=== PATIENT | female | born 1980 | race Caucasian/White ===

== ENCOUNTER 2019-01-08 19:39 | Inpatient (IN) | payer MEDICAID ==
[~2019-01-08] VITALS: Ht 162.6 cm; Wt 78.0 kg
--- NOTE | 2019-01-08 19:42 | NUR ---
EKG IN PROGRESS
[2019-01-08 19:44] VITALS: Ht 162.6 cm; Wt 78.0 kg
[2019-01-08 20:16] LABS: BASOPHIL % 0.3 % (0-2); PLATELET COUNT 250 x10^3mcL (130-400); RED CELL DISTRIBUTION WIDTH 13.1 % (11.5-14.5)
[2019-01-08 20:32] LABS: ALBUMIN 3.5 g/dL (3.4-5.0); BILIRUBIN TOTAL 0.9 mg/dL (0.20-1.00); CALCIUM 9.1 mg/dL (8.5-10.1); CARBON DIOXIDE 16.3 mmol/L (21-32); CREATININE SERUM 1.1 mg/dL (0.6-1.0); TOTAL PROTEIN, SERUM 7.3 g/dL (6.4-8.2)
[2019-01-08 20:33] LABS: POTASSIUM SERUM 2.5 mmol/L (3.5-5.1)
--- NOTE | 2019-01-08 20:56 | NUR ---
X-RAY BEIN DONE AT BEDSIDE.
[2019-01-08] MEDS ORDERED: ASPIR 8181 MG PO (21:24)
--- NOTE | 2019-01-08 21:24 | NUR ---
PT AAOX4, VSS, SPEAKS IN FULL CLEAR SENTENCES, BREATHING EASY AND UNLABORED. RESTING COMFORTABLY IN BED TALKING ON PHONE. NO OBVIOUS SIGNS OF DISTRESS AT THIS TIME. PT BEING ADMITTED. WILL CONTINUE TO MONITOR.
--- NOTE | 2019-01-08 21:53 | NUR ---
NO CHANGE IN STATUS AT THIS TIME. PT TOLERATING POTASSIUM CHLORIDE IV WELL. DENIES FURTHER NEEDS AT THIS TIME. WILL CONTINUE TO MONITOR.
--- NOTE | 2019-01-08 22:12 | NUR ---
CALLED TO PT BEDSIDE BY MEDICAL STUDENT, PT WAS COMPLAINING OF SEVERE ARM PAIN WITH IV INFUSION OF POTASSIUM. NOTICED PT NS WAS NOT INFUSING AND EVEN THOUGH LINE WAS WIDE OPEN. STOPPED POTASSIUM INFUSION AND FLUSHED IV WITH NS BOLUS AND PLACED NS ON IV PUMP TO INFUSE AT 120ML/HOUR ALONG WITH POTASSIUM PIGGYBACKED TO NS. PT STATES TO NO LONGER HAVING PAIN TO ARM, BUT FEELING NAUSEA. WILL NOTIFY MD AND PRIMARY RN OF PT CONDITION.
--- NOTE | 2019-01-08 22:34 | NUR ---
report called to Ferdinand PADILLA. pt admitted (tele, room# 237B). pt being transported to floor by VALERIE.
--- NOTE | 2019-01-08 22:43 | NUR ---
RECEIVED FROM ED,PUT IN ROOM 237 B AND MADE COMFORTABLE,JUANY WILL ADMIT PATIENT,THANKS.
[2019-01-08 22:59] LABS: MAGNESIUM 1.7 mg/dL (1.8-2.4); PHOSPHOROUS 2.9 mg/dL (2.5-4.9)
[2019-01-08 23:05] LABS: CHOLESTEROL/HDL RATIO 5.4
[2019-01-08 23:07] LABS: T3 TOTAL 1.11 ng/mL
[2019-01-08 23:09] LABS: FREE T4 1.54 ng/dL (0.76-1.46); FREE THYROXINE INDEX 4.3 ug/dL (1.4-4.5); T4(THYROXINE) 13.3 ug/dL (4.7-13.3)
[2019-01-08 23:11] VITALS: BP 124/82
--- NOTE | 2019-01-08 23:21 | NUR ---
RECEIVED PT FROM ER, PT ADMIT FOR SVT, HYPOKALEMIA, METABOLIC, PT IS A/O X4, VERBAL RESPONSIVE, LUNG SOUND CLEAR BILATERAL, NO COUGH, NO SOB, PT IS ON TELE 13, NSR, C/O CHEST PAIN PRESSURE, HR AT 90S AT THIS MOMENT. BOWEL SOUND PRESENT ALL 4 QUADRANTS, NO DISTENTION, NO TENDER. PEDAL PULSE PRESENT BOTH FEET, NO EDEMA, IV AT LEFT AC, NO LEAKING, NO INFILTRATION. ALL ADLS ASSIST ALL NEED MET, CALL LIGHT IN REACH, WILL CONTINUE TO MONITOR.
--- NOTE | 2019-01-09 00:49 | NUR ---
PATIENT MAGNESIUM RIDER INITIATED.IV SITE GOOD. AT BEDSIDE FOR TONIGHT,SUPPORTIVE OF CARE.CALL LIGHT IN REACH.
--- NOTE | 2019-01-09 02:08 | NUR ---
DR NICOLE CALLED AND MADE AWARE THAT [facility]SA STARTING DATE NEED TO BE CHANGED.
--- NOTE | 2019-01-09 03:18 | NUR ---
CHECKED AT INTERVALS FOR NEED AND SAFETY.NEEDED UA,REMINDED TO SAVE.WILL SEND TO LAB.
[2019-01-09 05:19] VITALS: BP 124/81
--- NOTE | 2019-01-09 05:37 | NUR ---
I AND O MEASURED AND RECORDED.SLEPT WELL DURING THE NOC.HEPLOCK INTACT.TELE 3 SR.NO CHEST PAIN.WILL ENDORSE TO NEXT SHIFT.
[2019-01-09 06:14] LABS: microscopic required? YES; urine erythrocyte TRACE (NEGATIVE)
[2019-01-09 06:22] LABS: AMPHETAMINE QUAL UR NONE DETECTED (See below)
[2019-01-09 06:40] LABS: CALCIUM 8.4 mg/dL (8.5-10.1); CARBON DIOXIDE 21.7 mmol/L (21-32); CHLORIDE SERUM 107 mmol/L (98-107); CREATININE SERUM 0.7 mg/dL (0.6-1.0); GFR1 > 60 mL/min; GLUCOSE SERUM 99 mg/dL (74-106); MAGNESIUM 2.2 mg/dL (1.8-2.4); POTASSIUM SERUM 3.9 mmol/L (3.5-5.1); SODIUM SERUM 140 mmol/L (136-145)
[2019-01-09 06:48] LABS: BASOPHIL % 0.7 % (0-2); PLATELET COUNT 217 x10^3mcL (130-400); RED CELL DISTRIBUTION WIDTH 13.4 % (11.5-14.5)
--- NOTE | 2019-01-09 07:47 | NUR ---
TROP.0.[address]CHACHERINE BRIGID LANGLEY.
--- NOTE | 2019-01-09 07:48 | NUR ---
PT RECEIVED AWAKE, ALERT AND ORIENTED. IN NO ACUTE RESP. DISTRESS. VS WNL. NSR ON THE MONITOR AT THIS TIME. NO C/O CHEST PAIN OR DISCOMFORT. FAMILY AT BEDSIDE. CALL LIGHT WITHIN REACH. WILL CONTINUE WITH PLAN OF CARE.
[2019-01-09 08:06] VITALS: BP 128/70
[2019-01-09 11:40] VITALS: BP 131/85
--- NOTE | 2019-01-09 13:28 | NUR ---
TROP. 0.369. DR. MARIA VICTORIA LANGLEY. PY RESTING IN BED, NO DISTRESS NOTED. NO C/O CHEST DISCOMFORT AT THIS TIME.
--- NOTE | 2019-01-09 13:40 | NUR ---
DR. RUSH WAS BY STATION AND WAS MADE AWARE OF LATEST TROP 0.369. NO NEW ORDERS AT THIS TIME.
[2019-01-09 16:22] VITALS: BP 121/76
--- NOTE | 2019-01-09 18:07 | NUR ---
PT RESTING IN BED, NO DISTRESS NOTED. FAMILY AT BEDSIDE. NO C/O CHEST PAIN OR DISCOMFORT. NO CHANGES IN VS. REMAINS NSR ON TELE. CALL HALL WITHIN REACH.
--- NOTE | 2019-01-09 18:48 | NUR ---
REMAIS IN NO DISTRESS. NO C/O CHEST PAIN AT THIS TIME. FAMILY AT BEDSIDE. WILL BE ENDORSED TO INCOMING SHIFT.
--- NOTE | 2019-01-09 19:05 | NUR ---
CARE ASSUMED FROM OUTGOING RN. PT RESTING COMFORTABLY IN BED. FAMILY AT BEDSIDE. NO ACUTE DISTRESS NOTED. EVEN AND UNLABORED RESPIRATIONS ON RA. IVL INTACT. ON TELE #13. NO C/O ANY PAIN, PRESSURE OR PALPITATIONS AT THIS TIME. BED IN LOWEST POSITION. SIDE RAILS UPX2. WILL CONTINUE TO MONITOR.
[2019-01-09 20:36] VITALS: BP 124/86
--- NOTE | 2019-01-10 00:22 | NUR ---
PT ASLEEP COMFORTABLY IN BED. NO ACUTE DISTRESS NOTED. EVEN AND UNLABORED RESPIRATIONS ON RA. ON TELE #13 READING SR 78. IVL INTACT. BED IN LOWEST POSITION. SIDE RAILS UPX2. CALL LIGHT WITHIN REACH. WILL CONTINUE TO MONITOR.
[2019-01-10 05:03] VITALS: BP 111/67
--- NOTE | 2019-01-10 06:18 | NUR ---
PT SLEPT COMFORTABLY IN INTERVALS THROUGHOUT THE SHIFT. AT BEDSIDE. NO ACUTE CHANGES NOTED. EVEN AND UNLABORED RESPIRATIONS ON RA. ON TELE# 13 READING SR 75 WITH OCC PVC. IVL PATENT AND INTACT. ALL NEEDS TENDED TO AND MET. ALL SCHEDULED MEDICATIONS GIVEN. NO C/O PAIN. BED IN LOWEST POSITION. SIDE RAILS UPX2. CALL LIGHT WITHIN REACH. WILL ENDORSE TO ONCOMING SHIFT.
[2019-01-10 06:53] LABS: BASOPHIL % 0.2 % (0-2); PLATELET COUNT 210 x10^3mcL (130-400); RED CELL DISTRIBUTION WIDTH 13.3 % (11.5-14.5)
--- NOTE | 2019-01-10 07:20 | NUR ---
RECEIVED AWAKE, ALERT AND ORIENTED. IN NO RESP. DISTRESS. VS WNL. NSR ON TELE. NO C/O CHEST PAIN OR DISCOMFORT AT THIS TIME. FAMILY AT BEDSIDE. CALL LIGHT WITHIN REACH. WILL CONTINUE WITH PLAN OF CARE.
[2019-01-10 08:01] LABS: CALCIUM 8.8 mg/dL (8.5-10.1); CARBON DIOXIDE 21.8 mmol/L (21-32); CHLORIDE SERUM 106 mmol/L (98-107); CREATININE SERUM 0.7 mg/dL (0.6-1.0); GFR1 > 60 mL/min; GLUCOSE SERUM 92 mg/dL (74-106); MAGNESIUM 1.8 mg/dL (1.8-2.4); POTASSIUM SERUM 4.1 mmol/L (3.5-5.1); SODIUM SERUM 141 mmol/L (136-145)
[2019-01-10 08:08] VITALS: BP 136/69
[2019-01-10 11:49] VITALS: BP 124/71
--- NOTE | 2019-01-10 13:16 | NUR ---
RESTING IN NO DISTRESS. FAMILY AT BEDSIDE. NO CHANGES IN VS. NSR ON TELE WITH OCC. PVC;S NOTED. PT ASYMPTOMATIC. DENIES LIGHTHEADED OR CHEST DISCOMFORT. WILL CONTINUE TO MONITOR.
[2019-01-10 16:12] VITALS: BP 109/75
--- NOTE | 2019-01-10 18:32 | NUR ---
PT WALKING ON A HALALWAYS WITH FAMILY. NO ACUTE DISTRESS NOTED. VS STABLE. REMAINS NSR ON TELE WITH OCC. PVC'S. NO C/O CHEST PAIN OR DISCOMFORT. NO PALPITATIONS. HL PATENT WITH NO SWELLING OR REDNESS AT THE SITE. WILL BE ENDORSED TO INCOMING SHIFT.
--- NOTE | 2019-01-10 19:10 | NUR ---
CARE ASSUMED FROM OUTGOING RN. PT RESTING COMFORTABLY IN BED. FAMILY AT BEDSIDE. NO ACUTE DISTRESS NOTED. EVEN AND UNLABORED RESPIRATIONS ON RA. ON TELE #13 READING SR 87 WITH OCC PVCS. IVL INTACT. DENIES ANY PAIN AT THIS TIME. BED IN LOWEST POSITION. SIDE RAILS UP X2. CALL LIGHT WITHIN REACH. WILL CONTINUE TO MONITOR.
[2019-01-10 21:02] VITALS: BP 130/58
--- NOTE | 2019-01-10 21:16 | NUR ---
MADE AWARE BY MT PT HAVING TRIGEMINY. PT ASYMPTOMATIC. NO C/O CHEST PAIN/PRESSURE. WILL CONTINUE TO MONITOR.
--- NOTE | 2019-01-10 21:52 | NUR ---
PT RECEIVED FROM ITA PADILLA. PT A/O X4, ABLE TO MAKE NEEDS KNOWN. SPOUSE AT BEDSIDE. TELE #13, DENIES ANY CP/PRESSURE. BREATHING IS EVEN AND UNLABORED ON RA, NO RESP DISTRESS NOTED. ABD SOFT AND NONDISTENDED, DENIES N/V. VOIDS FREELY, BRP. AMBULATORY WITH STEADY GAIT. SKIN IS WARM AND DRY, INTACT. PT DENIES HAVING ANY PAIN AT THIS TIME. SL TO LAC, PATENT AND INTACT, SITE WNL. NO ACUTE DISTRESS NOTED. BED IN LOWEST SETTING, SIDE RAILS UP X2, CALL LIGHT WITHIN REACH. WILL CONT TO MONITOR.
--- NOTE | 2019-01-10 21:53 | NUR ---
PT RESTING COMFORTABLY IN BED. AT BEDSIDE. NO ACUTE DISTRESS NOTED. CARE ENDORSED TO VALERIE CHINO.
[2019-01-11 05:50] VITALS: BP 98/59
[2019-01-11 05:51] VITALS: BP 125/57
--- NOTE | 2019-01-11 06:16 | NUR ---
PT SLEPT WELL THROUGHOUT THE EVENING. BREATHING IS EVEN AND UNLABORED, NO RESP DISTRESS NOTED. PT DENIES HAVING ANY PAIN AT THIS TIME. SL TO LAC, PATENT AND INTACT, SITE WNL. NO ACUTE CHANGES ENCOUNTERED DURING SHIFT. ALL NEEDS MET AND ANTICIPATED. PT COMPLIANT WITH NURSING CARE. SPOUSE AT BEDSIDE. CALL LIGHT WITHIN REACH. WILL ENDORSE CARE TO AM NURSE.
[2019-01-11 07:13] LABS: BASOPHIL % 0.3 % (0-2); PLATELET COUNT 213 x10^3mcL (130-400); RED CELL DISTRIBUTION WIDTH 13.7 % (11.5-14.5)
--- NOTE | 2019-01-11 07:23 | NUR ---
PT IN NO ACUTE DISTRESS. CONTINUITY OF CARE ENDORSED TO FLORENCIA PADILLA. ALL QUESTIONS AND CONCERNS ADDRESSED.
--- NOTE | 2019-01-11 07:28 | NUR ---
AWAKE ALERT AND ORIENTED. IN NO RESP. DISTRESS. VS STABLE. SR WITH OCC. PVC'S AND BIGEMINY ON THE TELE. PT ASYMPTOMATIC, DENIES CHEST DISCOMFORT OR LIGHTHEADED. FAMILY AT BEDSIDE. CALL LIGHT WITHIN REACH. WILL CONTINUE WITH PLAN OF CARE.
[2019-01-11 07:40] LABS: CALCIUM 8.7 mg/dL (8.5-10.1); CARBON DIOXIDE 20.9 mmol/L (21-32); CHLORIDE SERUM 105 mmol/L (98-107); CREATININE SERUM 0.8 mg/dL (0.6-1.0); GFR1 > 60 mL/min; GLUCOSE SERUM 89 mg/dL (74-106); POTASSIUM SERUM 3.8 mmol/L (3.5-5.1); SODIUM SERUM 139 mmol/L (136-145)
[2019-01-11 08:15] VITALS: BP 124/63
--- NOTE | 2019-01-11 12:06 | NUR ---
IN NO DISTRESS, RESTING IN BED. FAMILY AT [facility]. NO C/O CHEST PAIN OR DISCOMFORT.
[2019-01-11 17:26] VITALS: BP 106/64
--- NOTE | 2019-01-11 18:35 | NUR ---
REMAINS IN NO DISTRESS, AWAKE AND ALERT. NO C/O CHEST PAIN AT THIS TIME. VS WNL. CALL LIGHT WITHIN REACH. WILL BE ENDORSED TO INCOMING SHIFT.
--- NOTE | 2019-01-11 19:05 | NUR ---
CARE ASSUMED FROM OUTGOING RN. PT RESTING COMFORTABLY IN BED. AT BEDSIDE. NO ACUTE DISTRESS NOTED. EVEN AND UNLABORED RESPIRTAIONS ON RA. ON TELE# 13 READING SR 86 WITH OCC PVCS. IVL INTACT. DENIES ANY PAIN AT THIS TIME. BED IN LOWEST POSITION. SIDE RAILS UPX2. CALL LIGHT WITHIN REACH. WILL CONTINUE TO MONITOR.
[2019-01-11 20:44] VITALS: BP 119/70
--- NOTE | 2019-01-12 00:58 | NUR ---
PT ASLEEP COMFORTABLY IN BED. AT BEDSIDE. NO ACUTE DISTRESS NOTED. EVEN AND UNLABORED RESPIRATIONS ON RA. ON TELE# 13 READING SR 68 OCC PVCS, TRIGEMINY. IVL INTACT. BED IN LOWEST POSITION. SIDE RAILS UPX2. CALL LIGHT WITHIN REACH. WILL CONTINUE TO MONITOR.
[2019-01-12 05:30] VITALS: BP 122/71
--- NOTE | 2019-01-12 06:31 | NUR ---
PT SLEPT COMFORTABLY IN INTERVALS THROUGHOUT THE SHIFT. NO ACUTE CHANGES NOTED. ALL NEEDS TENDED TO AND MET. ON TELE#13 READING SR WITH OCC PVCS, TRIGEMINY. IVL PATENT AND INTACT. ALL SCHEDULED MEDICATIONS GIVEN. INSTRUCTED PT ON NPO STATUS DUE TO STRESS TEST SCHEDULED THIS AM. PT UNDERSTOOD. BED IN LOWEST POSITION. SIDE RAILS UPX2. CALL LIGHT WITHIN REACH. WILL ENDORSE TO ONCOMING SHIFT.
[2019-01-12 07:11] LABS: BASOPHIL % 0.4 % (0-2); PLATELET COUNT 211 x10^3mcL (130-400); RED CELL DISTRIBUTION WIDTH 13.8 % (11.5-14.5)
--- NOTE | 2019-01-12 07:25 | NUR ---
RECEIVED PT IN BED A/A/OX4 DENIES QUILES. RESP EVEN AND UNLABORED WITH CLEAR BS BILAT. DENIES ANY SOB/CP/PRESSURE AT THIS TIME. NO FURTHER EPISODES OF PALPITATIONS OR ST ON TELE. PT SCHEDULED FOR [facility] THIS AM NPO FOR PROCEDURE. ABD SOFT, NONTENDER WITH ACTIVE BS X4. DENIES ANY N/V AT THIS TIME. VOIDING FREELY. CALL LIGHT IN REACH NEEDS ATTENDED TO.
[2019-01-12 07:35] LABS: CALCIUM 8.8 mg/dL (8.5-10.1); CARBON DIOXIDE 23.8 mmol/L (21-32); CHLORIDE SERUM 105 mmol/L (98-107); CREATININE SERUM 0.8 mg/dL (0.6-1.0); GFR1 > 60 mL/min; GLUCOSE SERUM 80 mg/dL (74-106); POTASSIUM SERUM 3.5 mmol/L (3.5-5.1); SODIUM SERUM 140 mmol/L (136-145)
[2019-01-12 09:37] VITALS: BP 115/79
[2019-01-12] MEDS ORDERED: LIPITOR10 MG PO (09:44)
[2019-01-12] MEDS ORDERED: METOPROLOL TART25 M1 PO (09:44)
--- NOTE | 2019-01-12 11:00 | NUR ---
PT TAKEN DOWN TO NUCLEAR MED FOR [facility].
--- NOTE | 2019-01-12 12:40 | NUR ---
PT BACK FROM [facility]. DENIES ANY DISCOMFORT. CHECKED WITH DR. RUSH IF OK TO D/C PT IF REPORT IS NEGATIVE FOR ISCHEMIA. PER OK TO D/C IF NEGATIVE.
[2019-01-12 14:00] VITALS: BP 119/53
--- NOTE | 2019-01-12 14:51 | NUR ---
CASH ACCOUNTANT MUTUC NOTIFIED [facility] NEGATIVE. PER CASH ACCOUNTANT WILL COMPLETE D/C ORDER.
[2019-01-12 16:16] VITALS: BP 119/53
--- NOTE | 2019-01-12 17:25 | NUR ---
PT PROVIDED WITH D/C HOME INSTRUCTIONS GIVEN MEDICAITON/PRESCRIPTION EDUCATION. MADE AWARE OF LAST DOSES FOR MEDICATIONS. GIVEN RADIATION PRECAUTIONS INSTRUCTIONS TO FOLLOW AT HOME SINCE SHE RECEIVED RAIOACTIVE ISOTOPE FOR [facility]. PT MADE AWARE OF IMPORTANCE OF F/U WITH PCP AND REQUEST CARDIAC CONSULT REFERRAL FOR OUTPATIENT WORK UP. PT/ VERBALIZED UNDERSTANDING OF INSTRUCTIONS. TELE AND IV D/C'D CATHETER INTACT. PT TRANSPORTED TO [facility] WITH ALL PERSONAL BELONGINGS IN HAND FREE OF ANY APPARENT DISTRESS.
== END 2019-01-12 17:21 | disposition home or self-care (01) | DRG 201 ==
LOC: ED 19:39 → DU 21:49
PROVIDERS: Emergency Medicine; ADMIT General Practice
DX: I47.1 Supraventricular tachycardia (principal); I21.A1 Myocardial infarction type 2; E87.2 Acidosis; E83.42 Hypomagnesemia; E87.6 Hypokalemia; E78.5 Hyperlipidemia, unspecified; Z79.82 Long term (current) use of aspirin; Z68.31 Body mass index [BMI] 31.0-31.9, adult
CPT/HCPCS: 84439; A9500; G0378; J2785; J3475; J3480; J7030; Q0092